=== PATIENT | male | born 1980 | race Caucasian/White ===

== ENCOUNTER 2017-11-16 19:47 | Observation (INO) | payer OTHER ==
[~2017-11-16 19:47] MED LIST: IODIXANOL 320 MG/ML 100 ML VIAL.; LIDOCAINE 2% 20 ML VIAL.
[2017-11-16] MEDS ORDERED: ACETAMINOPHEN 325 MG TABLET. PO (20:00)
[2017-11-16] MEDS ORDERED: ONDANSETRON PF 4 MG/2 ML VIAL. IV (20:00)
[2017-11-16 21:36] LABS: TROPONINI < 0.017 ng/mL (0.000-0.055)
[2017-11-16] MEDS ORDERED: CYCLOBENZAPRINE 10 MG TABLET. PO (21:45)
[2017-11-16] MEDS ORDERED: ZOLPIDEM 5 MG TABLET. PO (21:45)
[2017-11-16] MEDS: LOSARTAN POTASSIUM 50 MG TABLET. PO (22:26)
[2017-11-17] MEDS: LABETALOL 20 MG/4 ML DISP.SYRIN. IVP ×3 (02:49→22:31)
[2017-11-17 04:52] LABS: ADD MAN DIFF? NO
[2017-11-17 04:56] LABS: BASO # 0.1 x10^3/uL (0.0-0.2); BASO % 1 % (0-3); EOS # 0.2 x10^3/uL (0.0-0.7); EOS % 2 % (0-3); HEMATOCRIT 39.3 % (39.0-53.0); LYMPH # 1.7 x10^3/uL (1.0-4.8); LYMPH % 18 % (24-48); MEAN CORPUSCULAR HEMOGLOBIN 31 pg (25-35); MEAN CORPUSCULAR HGB CONC 36 g/dL (31-37); MEAN CORPUSCULAR VOLUME 86 fL (79-100); MONO # 0.7 x10^3/uL (0.0-1.1); MONO % 8 % (0-9); NEUT # 6.8 x10^3uL (1.8-7.7); NEUT % 72 % (31-73); PLATELET COUNT 176 x10^3/uL (140-400); RED BLOOD COUNT 4.57 x10^6/uL (4.30-5.70); RED CELL DISTRIBUTION WIDTH 14.5 % (11.5-14.5); WHITE BLOOD COUNT 9.5 x10^3/uL (4.0-11.0)
[2017-11-17] MEDS: MORPHINE SULFATE 4 MG/ML DISP.SYRIN. IV ×4 (04:56→18:04)
[2017-11-17 05:05] LABS: PROTHROMBIN TIME PATIENT 12.7 SEC (11.7-14.0)
[2017-11-17 05:21] LABS: ANION GAP 7 (6-14); BLOOD UREA NITROGEN 14 mg/dL (8-26); CALCIUM 8.7 mg/dL (8.5-10.1); CARBON DIOXIDE 28 mmol/L (21-32); CHLORIDE 102 mmol/L (98-107); CHOLESTEROL 151 mg/dL (0-200); CREATININE 0.7 mg/dL (0.7-1.3); GFR 126.9; GLUCOSE 167 mg/dL (70-99); HDLC 24 mg/dL (40-60); LDLC 69 mg/dL (0-100); NON-HDL CHOLESTEROL 127 mg/dL (0-129); SODIUM 137 mmol/L (136-145); TRIGLYCERIDES 289 mg/dL (0-150); VLDLC 58 mg/dL (0-40)
[2017-11-17 05:22] LABS: CHOLESTEROL/HDL RATIO 6.3
[2017-11-17 05:25] LABS: TROPONINI < 0.017 ng/mL (0.000-0.055)
[2017-11-17] MEDS: NITROGLYCERIN SUBLINGUAL 0.4 MG BOTTLE OF 25. SL ×2 (08:16→11:29)
[2017-11-17] MEDS: LOSARTAN POTASSIUM 50 MG TABLET. PO (08:16)
[2017-11-17] MEDS ORDERED: LOSARTAN POTASSIUM 50 MG TABLET. PO (09:00)
[2017-11-17] MEDS: MELOXICAM 7.5 MG TABLET PO ×2 (09:00→20:48)
[2017-11-17] MEDS: TRIAMTERENE/HCTZ 37.5/25MG TABLET. PO (10:00)
[2017-11-17] MEDS ORDERED: ONDANSETRON PF 4 MG/2 ML VIAL. IV (10:15)
[2017-11-17] MEDS ORDERED: NON FORMULARY ITEM (Albuterol Sulfate (Proair Hfa Inhaler) 1 PUFF) INH (11:00)
[2017-11-17] MEDS ORDERED: ALBUTEROL SULFATE 2.5 MG/3 ML NEBU. NEB (11:15)
[2017-11-17] MEDS: MORPHINE SULFATE 2 MG/ML DISP.SYRIN. IV (22:30)
[2017-11-18] MEDS: MORPHINE SULFATE 2 MG/ML DISP.SYRIN. IV ×2 (04:20→12:25)
[2017-11-18] MEDS: REGADENOSON 0.4 MG/5 ML DISP.SYRIN. IV (08:00)
[2017-11-18] MEDS: TRIAMTERENE/HCTZ 37.5/25MG TABLET. PO (08:04)
[2017-11-18] MEDS: LOSARTAN POTASSIUM 50 MG TABLET. PO (08:06)
[2017-11-18] MEDS: HYDROcodone/APAP 5/325MG 1 TAB TABLET PO (08:07)
[2017-11-18 10:25] LABS: HEMOGLOBIN A1C 6.6 % (4.8-5.6)
[2017-11-18] MEDS ORDERED: PERFLUTREN PROTEIN-A MICROSPHR 0.22 MG/ML 3 ML VIAL. IV ×2 (11:46→12:00)
== END 2017-11-18 16:42 | disposition home or self-care (01) ==
LOC: ER 19:47 → 2 NORTH 20:05
PROVIDERS: Internal Medicine
DX: R07.9 Chest pain, unspecified (principal); E78.5 Hyperlipidemia, unspecified; E66.01 Morbid (severe) obesity due to excess calories; I10 Essential (primary) hypertension; E11.65 Type 2 diabetes mellitus with hyperglycemia; E78.1 Pure hyperglyceridemia; G47.33 Obstructive sleep apnea (adult) (pediatric); J45.909 Unspecified asthma, uncomplicated; K21.9 Gastro-esophageal reflux disease without esophagitis; M17.0 Bilateral primary osteoarthritis of knee; Z68.43 Body mass index [BMI] 50.0-59.9, adult; Z79.899 Other long term (current) drug therapy; Z82.3 Family history of stroke; Z82.49 Family history of ischemic heart disease and other diseases of the circulatory system; Z83.3 Family history of diabetes mellitus; G89.29 Other chronic pain
CPT/HCPCS: 36415; 78452; 80048; 80061; 83036; 84484; 85025; 85610; 93005; 93017; 96374; 96375; 96376; 99285-25; A9500; C8929; G0378; G0379; J2270; J2785; J3490; Q9956

== ENCOUNTER → 2019-01-27 | Outpatient (CLI) | payer MEDICAID ==
[2017-11-18 15:32] VITALS: BP 147/64
[~2019-01-27] MED LIST changes: +ALBU2.5V8 INH; +AMLO5TAB4 PO; +BARIUM SULFATE 60% 355 ML SUSP PO ONE; +BUPR150T8 PO; +CYCL10TA2 PO; -IODIXANOL 320 MG/ML 100 ML VIAL.; -LIDOCAINE 2% 20 ML VIAL.; +LOSA100T14 PO; +MELO15TA6 PO; +TRIA1TAB3 PO
--- NOTE | 2019-01-27 10:21 | RAD ---
SMALL BOWEL SERIES 01/27/2019. Reason for study: Lower abdominal pain from the umbilicus inferiorly. Recent history of diarrhea. Comparison studies: None.. Technique: Preliminary senior receptionist film of the abdomen was obtained. Then following ingestion of oral barium, serial images of the abdomen were obtained to assess progress of contrast throughout the small bowel. Once the contrast reached the colon, fluoroscopic evaluation of the small bowel, particularly the terminal ileum, was performed. Fluoroscopy time: 0.6 minutes Number of images: 10 Findings: Transit time through the small bowel is normal. No evidence for bowel obstruction or dilatation. Ileal fold pattern is more typical of the jejunum. The terminal ileum was unremarkable. Appendix is normal in appearance. IMPRESSION: 1. There is abnormal fold pattern involving the ileum which has appearance more typical of the jejunum. 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 Electronically signed by: Whitney Li MD (01/27/2019 10:18 AM) [facility]
== END | disposition home or self-care (01) ==
LOC: RAD 08:12
PROVIDERS: ATTEND Internal Medicine Gastroenterology
DX: R19.7 Diarrhea, unspecified (principal); R10.31 Right lower quadrant pain; R10.32 Left lower quadrant pain
CPT/HCPCS: 74250

== ENCOUNTER → 2019-02-02 | Day surgery (SDC) | payer MEDICAID ==
[~2019-02-02] MED LIST changes: -BARIUM SULFATE 60% 355 ML SUSP PO ONE; +IV RINGERS,LACTATED 1000ML 1,000 ML IV SCH; +LIDOCAINE 2% PF 5 ML VIAL. ONE; +PROPOFOL 20 ML IV ONE
[2019-02-02 16:21] VITALS: BP 153/86
--- NOTE | 2019-02-04 15:07 | PATHOLOGY ---
[facility] Accession Number: [id number] . 01 Material submitted: . PART A: duodenum - DUODENAL BX PART B: rectum - RECTAL BX OF POLYPS PART C: colon - RANDOM COLON BX'S PART D: colon - SIGMOID POLYPECTOMY . 01 Clinical history: . Abdominal pain, diarrhea, polyps Rule out celiac disease . 02 Diagnosis: A. "Duodenal BX", biopsy: - Small bowel/duodenal mucosa with minimal histologic alterations; no evidence of celiac sprue. . B. "Rectal BX of polyps", biopsy: - Hyperplastic polyp. . C. "Random colon BXs", biopsy: - Colonic mucosa with mild reactive changes; no evidence of active, lymphocytic or collagenous colitis and no dysplasia seen. . D. "Sigmoid polypectomy", biopsy: - Hyperplastic polyp. . (CLW:yesy; 02/04/2019) [facility] 02/04/2019 1012 Local . 02 Electronically signed: . Mindy Monique MD, Pathologist NPI- [id number] . 01 Gross description: . A. The specimen is received in formalin, labeled "Clement Correa, duodenal BX", are few irregular fragments of acosta soft tissue measuring 0.5 x 0.5 x 0.2 cm in aggregate. Entirely submitted in A1. . B. The specimen is received in formalin, labeled "Clement Correa, rectal biopsy of polyp and as per requisition rectal biopsy of polyps", is a acosta rubbery polyp measuring 0.4 x 0.4 cm, inked black and bisected. The specimen is entirely submitted in B1. . C. The specimen is received in formalin, labeled "Clement Correa, random colon biopsies", are several irregular fragments of acosta soft tissue measuring 0.7 x 0.7 x 0.2 cm in aggregate. Entirely submitted in C1. . D. The specimen is received in formalin, labeled "Madeline, Clement, sigmoid polypectomy", are two irregular fragments of acosta soft tissue measuring 0.3 cm in aggregate each. Entirely submitted in D1. ([facility]; 02/03/2019) [facility] 02/03/2019 2108 Local . 02 Pathologist provided ICD-10: K62.1, K63.5, R19.7 . 02 CPT . 677426, 432754, 647262, 092843 Specimen Comment: A courtesy copy of this report has been sent to Specimen Comment: [phone], . Specimen Comment: Report sent to / DR HOGAN Performed at: 01 [facility] [address], [place] [id number] MD Arcenio Georges MD Phone: [phone] Performed at: 02 [facility] [address] [place], [place] [id number] MD Atilio Link MD Phone: [phone]
== END ==
LOC: ENDOS 14:43
PROVIDERS: ATTEND Internal Medicine Gastroenterology
DX: K52.9 Noninfective gastroenteritis and colitis, unspecified (principal); K62.1 Rectal polyp; K63.5 Polyp of colon; K64.0 First degree hemorrhoids; K21.9 Gastro-esophageal reflux disease without esophagitis; E66.9 Obesity, unspecified; K31.89 Other diseases of stomach and duodenum; G47.30 Sleep apnea, unspecified; I10 Essential (primary) hypertension; J45.909 Unspecified asthma, uncomplicated; Z72.0 Tobacco use; Z98.890 Other specified postprocedural states; Z87.39 Personal history of other diseases of the musculoskeletal system and connective tissue; Z72.89 Other problems related to lifestyle
CPT/HCPCS: 43239; 45380; 45385; 88305; J2001; J2704

== ENCOUNTER → 2019-03-05 | Outpatient (CLI) | payer MEDICAID ==
[2019-02-02 16:21] VITALS: BP 153/86
[~2019-03-05] MED LIST changes: -IV RINGERS,LACTATED 1000ML 1,000 ML IV SCH; -LIDOCAINE 2% PF 5 ML VIAL. ONE; -PROPOFOL 20 ML IV ONE
[2019-03-05 15:08] LABS: BASO # 0.1 x10^3/uL (0.0-0.2); BASO % 1 % (0-3); EOS # 0.2 x10^3/uL (0.0-0.7); EOS % 2 % (0-3); HEMATOCRIT 37.2 % (39.0-53.0); HEMOGLOBIN 12.6 g/dL (13.0-17.5); LYMPH # 2.3 x10^3/uL (1.0-4.8); LYMPH % 18 % (24-48); MEAN CORPUSCULAR HEMOGLOBIN 29 pg (25-35); MEAN CORPUSCULAR HGB CONC 34 g/dL (31-37); MEAN CORPUSCULAR VOLUME 85 fL (79-100); MONO # 0.8 x10^3/uL (0.0-1.1); MONO % 6 % (0-9); NEUT # 9.5 x10^3/uL (1.8-7.7); NEUT % 74 % (31-73); PLATELET COUNT 225 x10^3/uL (140-400); RED BLOOD COUNT 4.39 x10^6/uL (4.30-5.70); RED CELL DISTRIBUTION WIDTH 15.5 % (11.5-14.5); WHITE BLOOD COUNT 12.9 x10^3/uL (4.0-11.0)
[2019-03-05 15:42] LABS: ALBUMIN 3.7 g/dL (3.4-5.0); CALCIUM 8.8 mg/dL (8.5-10.1); GFR 83.6; POTASSIUM 3.8 mmol/L (3.5-5.1)
[2019-03-06 00:07] LABS: HEMOGLOBIN A1C 8.2 % (4.8-5.6)
== END | disposition home or self-care (01) ==
LOC: SURGPAT 14:13
PROVIDERS: ATTEND Surgery
DX: Z01.818 Encounter for other preprocedural examination (principal); K42.9 Umbilical hernia without obstruction or gangrene
CPT/HCPCS: 36415; 80048; 82040; 83036; 85025

== ENCOUNTER 2019-03-08 08:48 | Day surgery (SDC) | payer OTHER ==
[~2019-03-08] VITALS: Ht 185.4 cm; Wt 163.5 kg
[~2019-03-08 08:48] MED LIST changes: +BUPIVACAINE MPF 0.5% 30 ML VIAL. ONE; +HYDROmorphone 2 MG/ML VIAL IV PRN; +IV RINGERS,LACTATED 1000ML 1,000 ML IV SCH; +LIDOCAINE 1% PF 2 ML VIAL. ID PRN; +MORPHINE SULFATE 2 MG/ML VIAL. IV PRN; +ONDANSETRON PF 4 MG/2 ML VIAL. IV PRN; +PROCHLORPERAZINE 10 MG/2 ML VIAL. IV PRN; +ceFAZolin SODIUM 3 GM in IV DEXTROSE 5% 100ML 100 ML IV PRN; +fentaNYL PF VIAL 100 MCG/2 ML VIAL IV PRN
[2019-03-08] MEDS ORDERED: INSULIN LISPRO 100 UNIT/ML 3ML VIAL for OP,RR ONLY. SQ PRN (09:45)
[2019-03-08] MEDS ORDERED: ONDANSETRON PF 4 MG/2 ML VIAL. ONE (10:58)
[2019-03-08] MEDS ORDERED: PROPOFOL 20 ML IV ONE ×2 (10:58→12:17)
[2019-03-08] MEDS ORDERED: ROCURONIUM 50 MG/5 ML VIAL. ONE ×2 (10:58→12:53)
[2019-03-08] MEDS ORDERED: MIDAZOLAM HCL/PF 2 MG/2 ML VIAL. ONE (10:58)
[2019-03-08] MEDS ORDERED: fentaNYL PF VIAL 100 MCG/2 ML VIAL ONE ×2 (10:58→11:10)
[2019-03-08] MEDS ORDERED: LIDOCAINE 2% PF 5 ML VIAL. ONE (10:58)
[2019-03-08] MEDS ORDERED: SUCCINYLCHOLINE 200 MG/10 ML VIAL. ONE (10:58)
[2019-03-08] MEDS ORDERED: DEXAMETHASONE SOD PHOS 4 MG/ML VIAL ONE (10:59)
[2019-03-08] MEDS ORDERED: BUPIVACAINE MPF 0.5% 30 ML VIAL. IJ ONE (12:41)
[2019-03-08] MEDS ORDERED: KETAMINE HCL IN NACL, ISO-OSM 50 MG/5 ML SYRINGE ONE (12:43)
[2019-03-08] MEDS ORDERED: SEVOFLURANE 61 TO 120 MINUTES. IH ONE (13:01)
[2019-03-08] MEDS ORDERED: NEOSTIGMINE METHYLSULFATE 5 MG/5 ML SYRINGE. ONE (13:11)
[2019-03-08] MEDS ORDERED: GLYCOPYRROLATE 1 MG/5 ML VIAL. ONE (13:11)
--- NOTE | 2019-03-08 13:41 | DISCH ---
DISCHARGE INSTRUCTIONS Condition on Discharge Condition on Discharge: Stable Activity After Discharge Activity Instructions for Disc: Activity as tolerated, Avoid exertion Lifting Instructions after Dis: No heavy lifting Exercise Instruction after Dis: Progress as tolerated Diet after Discharge Diet after Discharge: Cardiac, Diabetic No Calorie Level Diet Texture: Regular Swallowing Supervision: None needed Wound Incision Care Wound/Incision Care: Ice to area for comfort Other wound/incision instructi: august showfriday, abdominal binder Wound Care Equipment: Wound vac Follow-Up Follow up with: Matt next week Treatment/Equipment after DC Adaptive Equipment Issued: None ANTON RODGERS MD Mar 08, 2019 13:41
--- NOTE | 2019-03-08 13:44 | PDOC ---
BRIEF OPERATIVE NOTE Date: Mar 08, 2019 Pre-Op Diagnosis incarcerated umbilical hernia Post-Op Diagnosis same, multilocullated omental containing hernias Procedure Performed primary repair Surgeon Matt JAFFE Anesthesia Type: General Blood Loss 10cc IV Fluid 1000cc Specimens Obtained hernia sack and incarcerated contents Findings multiloculated omental filled hernia sack Complications none ANTON RODGERS MD Mar 08, 2019 13:43
[2019-03-08] MEDS: fentaNYL PF VIAL 100 MCG/2 ML VIAL IV PRN ×3 (14:32→15:01)
[2019-03-08] MEDS ORDERED: ALBUTEROL SULFATE 2.5 MG/3 ML NEBU. NEB PRN (14:45)
[2019-03-08] MEDS ORDERED: oxyCODONE/APAP 10/325 1 TAB TABLET PO ONE (15:15)
[2019-03-08 16:05] VITALS: BP 186/80
--- NOTE | 2019-03-08 16:35 | OP ---
DATE OF SURGERY: 03/08/2019 PREOPERATIVE DIAGNOSIS: Incarcerated umbilical hernia. POSTOPERATIVE DIAGNOSIS: Incarcerated umbilical hernia. PROCEDURE: Primary repair. SURGEON: Marcio Rodgers MD. ANESTHESIA: General endotracheal. BLOOD LOSS: 10. INTRAVENOUS FLUIDS: 1 liter. INDICATIONS: The patient is a 38-year-old gentleman with a BMI of 48 and pain and fullness in his umbilicus. OPERATIVE FINDINGS: The hernia had several loculations containing incarcerated omentum. DESCRIPTION OF PROCEDURE: The patient brought to the operating suite, given a general endotracheal anesthetic and the abdomen prepped and draped in usual sterile fashion. An infraumbilical incision was infiltrated with local anesthetic, incised and the hernia was encircled with a Sara drain placed around it. Umbilical skin freed from the underlying hernia and the sacs were opened, contents reduced and the defects all connected into one. This showed good abdominal wall and as such, the repair was carried out primarily using looped 0 PDS in running fashion, tied in the middle. Correct sponge count was obtained both before closure of the abdomen and after. Area checked for hemostasis. When present, the umbilical skin was tacked to the underlying repair with 3-0 Vicryl, skin closed with a subcuticular 4-0 Monocryl. Steri-Strips and sterile dressing applied. Abdominal binder placed. The patient was awakened from his anesthetic and taken to the recovery room in satisfactory condition. MARCIO RODGERS MD DR: JENNIFER/simona JOB#: [id number] / [id number]
--- NOTE | 2019-03-10 09:07 | PATHOLOGY ---
[facility] Accession Number: [id number] . 01 Material submitted: . hernia - HERNIA SAC AND INCARCERATED CONTENTS . 01 Clinical history: . Umbilical hernia. . 02 Diagnosis: Segments of fibromembranous and fibroadipose tissue, umbilical hernia repair: - Hernia sac with congestion and focal mild acute and chronic inflammation. 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 02 Electronically signed: . Atilio Link MD, Pathologist NPI- [id number] . 01 Gross description: . Received in formalin labeled "Madeline, Clement, hernia sac and incarcerated contents" are multiple fragments of pink-acosta membranous tissue and yellow-acosta lobulated fibroadipose tissue measuring in aggregate 12.2 x 8.6 x 1.8 cm. The specimen is sectioned to reveal no gross abnormalities. Nutrition Faculty Member tissue is submitted in cassette A1. ([facility]; 03/08/2019) [facility] 03/08/2019 1931 Local . 02 Pathologist provided ICD-10: K44.9 . 02 CPT . 333961 Specimen Comment: A courtesy copy of this report has been sent to [phone], [phone] Specimen Comment: [phone] Specimen Comment: Report sent to / DR DILLON Performed at: 01 [facility] [address], [place] [id number] MD Arcenio Georges MD Phone: [phone] Performed at: 02 [facility] [address] [place], [place] [id number] MD Atilio Link MD Phone: [phone]
== END 2019-03-08 16:30 | disposition home or self-care (01) ==
LOC: SURG 08:48
PROVIDERS: ATTEND Surgery
DX: K42.0 Umbilical hernia with obstruction, without gangrene (principal); I10 Essential (primary) hypertension; J45.909 Unspecified asthma, uncomplicated; G47.30 Sleep apnea, unspecified; K21.9 Gastro-esophageal reflux disease without esophagitis; E66.9 Obesity, unspecified; Z68.42 Body mass index [BMI] 45.0-49.9, adult; Z79.899 Other long term (current) drug therapy; Z72.0 Tobacco use; Z72.89 Other problems related to lifestyle
CPT/HCPCS: 49587; 82962; 88302; 94640; A7015; C1769; J0330; J1100; J2001; J2250; J2405; J2704; J2710; J3010; J3490; J7120; J7613